=== PATIENT | female | born 1940 | race Caucasian/White ===

== ENCOUNTER 2019-06-30 11:36 | Inpatient (IN) | payer MEDICAID, MEDICARE ==
[~2019-06-30] VITALS: Ht 157.5 cm; Wt 79.9 kg
[2019-06-30] MEDS ORDERED: HYDR12.529 PO (11:43)
[2019-06-30] MEDS ORDERED: AMLO2.5T45 PO (11:43)
[2019-06-30] MEDS ORDERED: SODIUM CHLORIDE 0.9% 1,000 ML IV ONE (11:59)
[2019-06-30 12:29] LABS: HEMATOCRIT. 34.1 % (36.0-48.0); HEMOGLOBIN. 11.3 g/dL (12.0-16.0); MEAN CORPUSCULAR HEMOGLOBIN 28.4 pg (28.0-32.0); MEAN CORPUSCULAR VOLUME 85.7 fL (81.0-99.0); PLATELET 283 x1000/uL (130-400); RED BLOOD CELL COUNT 3.98 mill/uL (4.2-5.4); RED CELL DISTRIBUTION WIDTH 15.3 % (11.6-14.6)
[2019-06-30 12:36] LABS: CHLORIDE 102 mEq/L (98-107)
[2019-06-30 12:58] LABS: PLATELET ESTIMATE NORMAL
[2019-06-30] MEDS ORDERED: ASPIRIN 325MG EC TABLET PO ONE (13:15)
[2019-06-30 13:30] LABS: CLARITY URINE CLEAR (CLEAR); COLOR URINE YELLOW (YELLOW); KETONES URINE NEGATIVE (NEGATIVE); LEUKOCYTE ESTERASE URINE TRACE (NEGATIVE); NITRITE URINE NEGATIVE (NEGATIVE); OCCULT BLOOD URINE NEGATIVE (NEGATIVE); PROTEIN URINE NEGATIVE (NEGATIVE); SPECIFIC GRAVITY URINE 1.006 (1.005-1.030); UROBILINOGEN URINE 0.2 E.U./dL (0.2-1.0)
[2019-06-30] MEDS ORDERED: CEFTRIAXONE 1 G PREMIX 50 ML IV ONE (14:00)
[2019-06-30] MEDS: DEXT 5%/0.9% NACL 1,000 ML IV SCH (15:01)
[2019-06-30 15:46] LABS: HEPATITIS B SURFACE ANTIGEN NEGATIVE
[2019-06-30 16:00] VITALS: BP 133/56
[2019-06-30] MEDS ORDERED: IPRATROPIUM/ALBUTEROL 0.5-3(2.5)MG/3ML NEB NEB PRN (16:00)
[2019-06-30] MEDS ORDERED: ACETAMINOPHEN 650MG SUPP PR PRN (16:00)
[2019-06-30] MEDS ORDERED: CLONIDINE 0.1MG TABLET PO PRN (16:00)
[2019-06-30] MEDS ORDERED: MAGNESIUM/ALUMINUM HYDROXIDE/SIMETHICONE 30ML UDC PO PRN (16:00)
[2019-06-30] MEDS ORDERED: ONDANSETRON HCL 4MG/2ML INJ IV PRN (16:00)
[2019-06-30] MEDS ORDERED: DOCUSATE SODIUM 100MG CAPSULE PO PRN (16:00)
[2019-06-30] MEDS ORDERED: HYDROCODONE/ACETAMINOPHEN 5/325MG TABLET PO PRN (16:00)
[2019-06-30] MEDS ORDERED: ACETAMINOPHEN 325MG TABLET PO PRN (16:00)
[2019-06-30] MEDS ORDERED: GUAIFENESIN 200MG/10ML SUGAR FREE UDC PO PRN (16:00)
[2019-06-30] MEDS ORDERED: NA PHOS,M-B/NA PHOS,DI-BA ENEMA 118ML PR PRN (16:00)
[2019-06-30] MEDS ORDERED: LORAZEPAM 0.5MG TABLET PO PRN (16:00)
[2019-06-30] MEDS ORDERED: DIPHENHYDRAMINE 50MG/ML VIAL IV PRN (16:00)
[2019-06-30 16:16] LABS: HEPATITIS A AB IGM NEGATIVE (NEGATIVE)
[2019-06-30 17:00] VITALS: BP 133/56
[2019-06-30 17:30] VITALS: BP 133/56
[2019-06-30] MEDS ORDERED: TELM1TAB33 PO (18:15)
[2019-06-30] MEDS ORDERED: INFLUENZA VIRUS VACCINE(AFLURIA) 0.5ML SYR IM ONE (19:15)
[2019-06-30 20:00] VITALS: BP 143/53
[2019-06-30] MEDS ORDERED: LEVOFLOXACIN 500MG PREMIX 100 ML IV SCH (20:00)
[2019-06-30] MEDS: FAMOTIDINE 20MG TABLET PO SCH (21:06)
[2019-06-30] MEDS: ENOXAPARIN 30MG/0.3ML SYR SUBCUT SCH (21:30)
[2019-06-30] MEDS ORDERED: MECLIZINE 25MG TABLET PO PRN (23:00)
[2019-06-30 23:29] LABS: CREATINE KINASE 65 IU/L (26-192)
[2019-06-30 23:30] LABS: CREATINE KINASE MB FRACTION 2.3 ng/mL (0.5-3.6)
[2019-06-30] MEDS: METRONIDAZOLE 500 MG PREMIX 100 ML IV SCH (23:32)
[2019-07-01] VITALS (7 sets, daily range): BP systolic 98–148; BP diastolic 26–58
[2019-07-01 01:21] LABS: *AMPHETAMINES SCREEN URINE NEGATIVE (NEGATIVE); *BARBITURATES SCREEN URINE NEGATIVE (NEGATIVE); *BENZODIAZEPINES SCREEN URINE NEGATIVE (NEGATIVE); *COCAINE SCREEN URINE NEGATIVE (NEGATIVE)
[2019-07-01 01:22] LABS: CANNABINOID URINE SCREEN NEGATIVE (NEGATIVE); METHADONE URINE SCREEN NEGATIVE (NEGATIVE); OPIATES URINE SCREEN NEGATIVE (NEGATIVE); PHENCYCLIDINE URINE SCREEN NEGATIVE (NEGATIVE)
[2019-07-01] MEDS: METRONIDAZOLE 500 MG PREMIX 100 ML IV SCH ×2 (06:00→14:22)
[2019-07-01] MEDS: DEXT 5%/0.9% NACL 1,000 ML IV SCH ×2 (06:00→17:26)
[2019-07-01 06:47] LABS: BASOPHILS % 0.5 % (0.0-2.0); EOSINOPHILS % 0.5 % (0.0-5.0); HEMATOCRIT. 28.5 % (36.0-48.0); HEMOGLOBIN. 9.5 g/dL (12.0-16.0); LYMPHOCYTES % 19.7 % (20.0-50.0); MEAN CORPUSCULAR HEMOGLOBIN 28.2 pg (28.0-32.0); MEAN PLATELET VOLUME 9.9 fl (7.4-10.4); MONOCYTES % 10.4 % (2.0-8.0); NEUTROPHILS % 68.9 % (40.0-76.0); PLATELET 247 x1000/uL (130-400); RED BLOOD CELL COUNT 3.36 mill/uL (4.2-5.4)
[2019-07-01 07:21] LABS: CHLORIDE 114 mEq/L (98-107)
[2019-07-01 07:36] LABS: LDL CHOLESTEROL 75 mg/dL (5-100)
[2019-07-01 07:37] LABS: CREATINE KINASE 48 IU/L (26-192); HDL CHOLESTEROL 48 mg/dL (40-59)
[2019-07-01 07:39] LABS: CREATINE KINASE MB FRACTION 1.7 ng/mL (0.5-3.6); T4 FREE 1.42 ng/dL (0.76-1.46)
[2019-07-01] MEDS ORDERED: LEVOFLOXACIN 250MG PREMIX 50 ML IV SCH (20:00)
[2019-07-01] MEDS: FAMOTIDINE 20MG TABLET PO SCH (20:58)
[2019-07-01] MEDS: ENOXAPARIN 30MG/0.3ML SYR SUBCUT SCH (20:58)
[2019-07-02] VITALS (7 sets, daily range): BP systolic 109–156; BP diastolic 30–86
[2019-07-02] MEDS: METRONIDAZOLE 500 MG PREMIX 100 ML IV SCH ×3 (00:36→16:00)
[2019-07-02] MEDS: DEXT 5%/0.9% NACL 1,000 ML IV SCH (00:36)
[2019-07-02 06:27] LABS: BASOPHILS % 0.9 % (0.0-2.0); EOSINOPHILS % 2.4 % (0.0-5.0); HEMATOCRIT. 28.5 % (36.0-48.0); HEMOGLOBIN. 9.4 g/dL (12.0-16.0); LYMPHOCYTES % 33.6 % (20.0-50.0); MEAN CORPUSCULAR HEMOGLOBIN 28.2 pg (28.0-32.0); MEAN CORPUSCULAR VOLUME 85.2 fL (81.0-99.0); MEAN PLATELET VOLUME 9.5 fl (7.4-10.4); MONOCYTES % 11.8 % (2.0-8.0); NEUTROPHILS % 51.3 % (40.0-76.0); PLATELET 257 x1000/uL (130-400); RED BLOOD CELL COUNT 3.35 mill/uL (4.2-5.4)
[2019-07-02 06:30] LABS: CHLORIDE 116 mEq/L (98-107)
[2019-07-02] MEDS ORDERED: LEVOFLOXACIN 250MG TABLET PO SCH (21:00)
== END 2019-07-02 16:50 | disposition home or self-care (01) | DRG 682 ==
LOC: ER 11:36 → SUPCPDRO 13:42 → 5WST 14:08 → ENRESERV 15:58
PROVIDERS: ADMIT Internal Medicine; ATTEND Internal Medicine
DX: N17.9 Acute kidney failure, unspecified (principal); I50.33 Acute on chronic diastolic (congestive) heart failure; N39.0 Urinary tract infection, site not specified; E86.0 Dehydration; I95.1 Orthostatic hypotension; G90.8 Other disorders of autonomic nervous system; D64.9 Anemia, unspecified; I10 Essential (primary) hypertension; K52.9 Noninfective gastroenteritis and colitis, unspecified; M79.605 Pain in left leg; I11.0 Hypertensive heart disease with heart failure; I27.20 Pulmonary hypertension, unspecified; Z79.899 Other long term (current) drug therapy
CPT/HCPCS: 36415; 71045; 72170; 73590; 76700; 80048; 80061; 80305; 81003; 82270; 82550; 82553; 83880; 84439; 84443; 84484; 86705; 86709; 86803; 87015; 87045; 87340; 87427; 87449; 89055; 90686; 93005; 93306; 93970; 96374; 97116; 97162; 99285; J0696; J1650; J1956; J3490; J7030; J7042